=== PATIENT | female | born 1960 | race Caucasian/White ===

== ENCOUNTER → 2018-06-09 07:40 | Outpatient (CLI) | payer OTHER, SELFPAY ==
--- NOTE | 2018-06-09 | DI.MRI.S_ITS ---
PROCEDURE: MR WRIST LT WO CON INDICATIONS: LEFT ELBOW/WRIST PAIN TECHNIQUE: Noncontrast coronal proton density fast spin echo and T2 fast spin echo with fat saturation; coronal 3-D gradient echo, axial T1 spin echo and T2 fast spin echo with fat saturation, sagittal T1 spin echo through the wrist. COMPARISON: None. FINDINGS: Image quality: There is motion artifact and mild inhomogeneous fat saturation. Bones and cartilage: The carpal bones are normally aligned. No bone marrow contusions or fractures. There is a small region of mild edema and cystic change within the proximal ulnar aspect of the lunate compatible with a degenerative cyst or ganglion cysts. No evidence for avascular necrosis. There is thinning of the articular cartilage along the radiocarpal joint with suspected chondral fissuring along the lunate. Carpal ligaments: The scapholunate and lunotriquetral ligaments appear grossly intact with mild intermediate signal suggestive of degeneration or sequelae of ligamentous sprains are. In the absence of intra-articular contrast, the extrinsic carpal ligaments are not well identified. On sagittal images, the pisohamate ligament appears intact. Triangular fibrocartilage complex: The triangular fibrocartilage appears grossly intact with intermediate signal along the foveal and styloid attachments consistent with degenerative change or sequelae of prior sprains. There is mild indistinct edema along the triangular fibrocartilage complex. The adjacent meniscal homolog appears grossly preserved in the absence of intra-articular contrast. The extensor carpi ulnaris tendon demonstrates mild tendinopathy with mild peritendinous edema consistent with peritendinitis but appears intact. Tendons and soft tissues: The median nerve is thickened with T2 hyperintensity in the carpal tunnel. There is slight thickening of the overlying aponeurosis. The remainder of the carpal tunnel structures appear within normal limits. The ulnar nerve appears normal within Guyon's canal. All six extensor tendon compartments demonstrate normal morphology, without pathologic tendon sheath fluid. No soft tissue ganglion cysts. IMPRESSION: 1. Focus of edema and cystic change in the proximal ulnar aspect of lunate compatible with small degenerative subchondral cysts or ganglion cysts. 2. Segmental thickening and T2 hyperintensity of the median nerve in the carpal tunnel with slight thickening of the overlying aponeurosis may be associated with carpal tunnel syndrome. Recommend correlation with clinical symptoms. 3. Mild intermediate signal within the triangular fibrocartilage as well as the scapholunate and lunotriquetral ligaments may be associated with degenerative change or sequelae of prior sprains. 4. Mild segmental tendinopathy and peritendinitis of the extensor carpi ulnaris tendon at the wrist. Dictated by: Saud Mcpherson M.D. on 06/09/2018 at 14:03 Approved by: Saud Mcpherson M.D. on 06/09/2018 at 14:14
--- NOTE | 2018-06-09 | DI.MRI.S_ITS ---
PROCEDURE: MR ELBOW LT W CON INDICATIONS: LEFT WRIST AND ELBOW PAIN TECHNIQUE: Noncontrast coronal proton density fast spin echo and T2 fast spin echo with fat saturation, axial and sagittal T1 spin echo and T2 fast spin echo with fat saturation through the elbow. COMPARISON: None. FINDINGS: Image quality: Excellent. Lateral structures: The lateral ulnar collateral ligament and radial collateral ligament both appear intact. There is tendinosis involving the common extensor tendon origin at its insertion and lateral epicondyles. No evidence of common extensor tendon rupture. Medial structures: The ulnar collateral ligament appears intact. The overlying common flexor tendon appears normal. The ulnar nerve appears normal in size and signal within the cubital tunnel. Anterior structures: The biceps and brachialis tendons both appear intact as they insert onto the proximal radius and ulna, respectively. No bicipitoradial bursal fluid. The median and radial neurovascular bundles appear normal; no focal muscle atrophy to suggest nerve impingement. Posterior structures: The conjoint triceps tendon from the long and lateral heads appears intact. The medial head of the triceps tendon also appears normal, with direct muscle insertion onto the olecranon. No olecranon bursal fluid. Bone and cartilage: No bone marrow contusions or fractures. No osteochondral injuries. IMPRESSION: Finding is suggestive of tendinosis and possible low grade partial-thickness tear involving proximal common extensor tendon origin. No other tendon or ligament abnormality is seen. No marrow signal abnormality. No significant joint effusion. Dictated by: Fermín Noel M.D. on 06/09/2018 at 12:25 Approved by: Fermín Noel M.D. on 06/09/2018 at 12:34
== END ==
DX: M25.532 Pain in left wrist (principal); M25.522 Pain in left elbow; M77.9 Enthesopathy, unspecified
CPT/HCPCS: 73221

== ENCOUNTER 2020-08-16 17:51 | Emergency (ER) | payer OTHER, MEDICAID, SELFPAY ==
[2020-08-16] VITALS (46 sets, daily range): BP systolic 71–173; BP diastolic 44–98; PULSE 78–141; RESP 11–36; O2SAT 88–100
--- NOTE | 2020-08-16 17:56 | DI.RAD.S_ITS ---
PROCEDURE: XR CHEST 1V INDICATIONS: asthma, ? [place] TECHNIQUE: One view of the chest was acquired. COMPARISON: None. FINDINGS: Surgical changes and devices: Endotracheal tube is in the right mainstem bronchus. Lungs and pleura: Opacification of the left hemithorax. No pleural effusions or pneumothorax. Mediastinum: Mediastinal contours appear normal. Heart size is normal. Bones and chest wall: No suspicious bony lesions. Overlying soft tissues appear unremarkable. IMPRESSION: Endotracheal tube in the right mainstem bronchus. Opacification of the left hemithorax. It is uncertain if this is related to the malposition of the endotracheal tube versus diffuse left airspace opacity or large left pleural effusion. Right hemithorax is clear. Results were called to the emergency department at 6:14 p.m. The provider is aware of the malpositioned endotracheal tube and has been pulled back. Dictated by: Morgan Fletcher M.D. on 08/16/2020 at 18:11 Approved by: Morgan Fletcher M.D. on 08/16/2020 at 18:15
[2020-08-16] MEDS: KETAMINE 500 MG/5 ML INJ 105 MG IV (18:03)
--- NOTE | 2020-08-16 18:03 | ED_ITS ---
HPI - SOB/Dyspnea General Chief Complaint: Shortness of Breath/Dyspnea Stated Complaint: Intubated,possible STEMI Time Seen by Provider: 08/16/20 17:55 Source: family and EMS Mode of arrival: EMS Limitations: physical limitation History of Present Illness HPI Narrative: Patient is a 59-year-old female with history of coronary artery disease, asthma and hypothyroid presenting today with difficulty breathing. She was actually feeling okay out riding horses with her granddaughter. They were on their way home when she suddenly felt like she could not breathe rib puller to the side of the road and 911 was called. When EMS arrived she was intubated on scene for difficulty breathing. Related Data Allergies Allergy/AdvReac Type Severity Reaction Status Date / Time No Known Drug Allergies Allergy Verified 08/16/20 18:31 Review of Systems Review of Systems ROS Unobtainable: Unobtainable due to medical condition Patient History Medical History Asthma Coronary artery disease Hypothyroid Exam Initial Vital Signs Initial Vital Signs: Vital Signs Pulse Rate 141 H 08/16/20 17:52 Respiratory Rate 13 08/16/20 17:52 Blood Pressure 173/98 H 08/16/20 17:52 Pulse Oximetry 89 L 08/16/20 17:52 Gen.: Intubated sedated patient HEENT: Head is atraumatic pupils equal and reactive Neck: No JVD Lungs: Decreased breath sounds on left, tight on the right mild wheezing Cardiac: Tachycardic regular Abdomen: Soft nontender Extremities: Peripheral pulses intact no gross bony deformities Neurologic: Intubated GCS 3 Skin: Slightly cyanotic no lacerations Procedures Central Line Placement Right IJ: Time Out Performed: Yes Patient Placed on Monitor/Pulse Ox: Yes MD Prep: mask, gown and gloves Central Line Prep: Chlorhexidine scrub Local Anesthetic: lidocaine 1% Amount of anesthesia used (mL): 5 Ultrasound Used for Placement: Yes Central Line Lumen Inserted: triple Post Procedure: sutured in place (Stat Lock), good blood return, all ports aspirated, flushed, capped and sterile dressing applied Course Orders Ordered: ED Orders 08/16/20 19:05 Arterial Blood Gas Stat 08/16/20 19:20 EKG-12 Lead Stat 08/16/20 19:25 EKG-12 Lead Stat 08/16/20 19:42 XR chest 1V Stat 08/16/20 20:00 Troponin I Stat 08/16/20 21:33 Chest [XR chest 1V] Stat 08/16/20 21:53 Arterial Blood Gas Stat Discontinued Medications Albuterol/Ipratropium (Albuterol/Ipratropium 3 Ml Ampul) 3 ml INH NOW ONE Stop: 08/16/20 17:57 Last Admin: 08/16/20 19:19 Dose: 3 ml Documented by: FRANCISCO J Heparin Sodium (Porcine) (Heparin 5,000 Unit/Ml Vial) 5,000 unit IV NOW ONE Stop: 08/16/20 20:44 Last Admin: 08/16/20 21:49 Dose: 5,000 unit Documented by: HOLLIS Hydromorphone HCl (Hydromorphone 1 Mg Inj) 1 mg IV NOW ONE Stop: 08/16/20 22:51 Last Admin: 08/16/20 22:57 Dose: 1 mg Documented by: HOLLIS Magnesium Sulfate (Magnesium Sulfate) 2 gm in 50 mls @ 25 mls/hr IV NOW ONE Stop: 08/16/20 19:55 Last Infusion: 08/16/20 19:00 Dose: 0 mls/hr Documented by: HOLLIS Cosigned by: ADAN Infusion: 08/16/20 18:17 Dose: 50 mls/hr Documented by: ADAN Cosigned by: ISAIAH Admin: 08/16/20 18:05 Dose: 25 mls/hr Documented by: NENA Cosigned by: ISAIAH Sodium Chloride (Normal Saline 0.9%) 1,000 mls @ 1,000 mls/hr IV BOLUS ONE Stop: 08/16/20 18:55 Last Infusion: 08/16/20 20:39 Dose: 0 mls/hr Documented by: Admin: 08/16/20 18:06 Dose: 1,000 mls/hr Documented by: NENA Ketamine HCl 500 mg/ Sodium (Chloride) 255 mls @ 3 mls/hr IV TITRATE KRIS; Protocol Last Titration: 08/16/20 23:21 Dose: 0 mg/min, 0 mls/hr Documented by: Titration: 08/16/20 22:03 Dose: 0 mg/min, 0 mls/hr Documented by: Admin: 08/16/20 19:01 Dose: 0.1 mg/min, 3.06 mls/hr Documented by: ESTEFANIAPBradley Ceftriaxone Sodium/Dextrose (Rocephin) 2 gm in 50 mls @ 100 mls/hr IV NOW ONE Stop: 08/16/20 19:40 Last Infusion: 08/16/20 20:06 Dose: 0 mls/hr Documented by: Admin: 08/16/20 19:19 Dose: 100 mls/hr Documented by: HOLLIS Azithromycin 500 mg/ Dextrose 250 mls @ 250 mls/hr IV NOW ONE Stop: 08/16/20 19:11 Last Infusion: 08/16/20 22:11 Dose: 0 mls/hr Documented by: Infusion: 08/16/20 19:50 Dose: 250 mls/hr Documented by: Infusion: 08/16/20 19:29 Dose: 0 mls/hr Documented by: Admin: 08/16/20 19:23 Dose: 250 mls/hr Documented by: NENA Sodium Chloride (Normal Saline 0.9%) 1,000 mls @ 1,000 mls/hr IV BOLUS ONE Stop: 08/16/20 21:27 Last Infusion: 08/16/20 21:46 Dose: 0 mls/hr Documented by: Admin: 08/16/20 20:30 Dose: 1,000 mls/hr Documented by: HOLLIS Heparin Sodium/Dextrose (Heparin Drip) 25,000 unit in 500 mls @ 20 mls/hr IV CONT KRIS; Protocol Last Titration: 08/16/20 23:23 Dose: 0 units/hr, 0 mls/hr Documented by: Admin: 08/16/20 21:49 Dose: 1,000 units/hr, 20 mls/hr Documented by: HOLLIS Norepinephrine Bitartrate 4 mg (/ Dextrose) 254 mls @ 30.48 mls/hr IV TITRATE KRIS; Protocol Last Titration: 08/16/20 23:21 Dose: 0 mcg/min, 0 mls/hr Documented by: Admin: 08/16/20 21:38 Dose: 8 mcg/min, 30.48 mls/hr Documented by: HOLLIS Propofol (Propofol) 1,000 mg in 100 mls @ 3.09 mls/hr IV TITRATE KRIS; Protocol Last Titration: 08/16/20 23:20 Dose: 0 mcg/kg/min, 0 mls/hr Documented by: Titration: 08/16/20 22:22 Dose: 10 mcg/kg/min, 6.18 mls/hr Documented by: Admin: 08/16/20 22:00 Dose: 5 mcg/kg/min, 3.09 mls/hr Documented by: HOLLIS Sodium Chloride (Normal Saline 0.9%) 1,000 mls @ 1,000 mls/hr IV BOLUS ONE Stop: 08/16/20 23:24 Last Infusion: 08/16/20 23:22 Dose: 0 mls/hr Documented by: Admin: 08/16/20 22:26 Dose: 1,000 mls/hr Documented by: HOLLIS Ketamine HCl (Ketamine 500 Mg/5 Ml Inj) 105 mg 1 mg/kg (105 mg) IV NOW ONE Stop: 08/16/20 17:58 Last Admin: 08/16/20 18:03 Dose: 105 mg Documented by: NENA Ketamine HCl (Ketamine 500 Mg/5 Ml Inj) 100 mg IV NOW ONE Stop: 08/16/20 20:15 Last Admin: 08/16/20 20:15 Dose: 100 mg Documented by: HOLLIS Ketamine HCl (Ketamine 500 Mg/5 Ml Inj) 200 mg IV NOW ONE Stop: 08/16/20 21:40 Last Admin: 08/16/20 21:41 Dose: 200 mg Documented by: HOLLIS Midazolam HCl (Midazolam 5 Mg/Ml Vial) 2 mg IV NOW ONE Stop: 08/16/20 20:44 Last Admin: 08/16/20 20:45 Dose: 2 mg Documented by: HOLLIS Prednisone (Prednisone 20 Mg Tablet) 60 mg PO NOW ONE Stop: 08/16/20 17:57 Last Admin: 08/16/20 18:06 Dose: Not Given Documented by: NENA Vital Signs Vital signs: Vital Signs - 8 hr 08/16/20 19:30 08/16/20 19:32 08/16/20 19:40 Pulse Rate 101 H 110 H 114 H Respiratory Rate Blood Pressure 112/73 114/75 Pulse Oximetry 92 93 99 08/16/20 19:50 08/16/20 20:00 08/16/20 20:01 Pulse Rate 109 H 112 H 110 H Respiratory Rate 27 H 29 H Blood Pressure 101/67 102/70 Pulse Oximetry 99 98 98 08/16/20 20:10 08/16/20 20:14 08/16/20 20:26 Pulse Rate 103 H 101 H 89 Respiratory Rate 29 H 28 H 28 H Blood Pressure 88/50 L 79/52 L 75/44 L Pulse Oximetry 99 99 99 08/16/20 20:47 08/16/20 20:51 08/16/20 20:55 Pulse Rate 100 H 91 H 87 Respiratory Rate 28 H 28 H 28 H Blood Pressure 112/67 85/53 L 75/49 L Pulse Oximetry 99 98 98 08/16/20 21:00 08/16/20 21:01 08/16/20 21:05 Pulse Rate 84 84 82 Respiratory Rate 28 H 28 H 28 H Blood Pressure 74/45 L 71/49 L Pulse Oximetry 99 99 100 08/16/20 21:10 08/16/20 21:15 08/16/20 21:21 Pulse Rate 84 83 98 H Respiratory Rate 29 H 28 H 28 H Blood Pressure 74/51 L 75/52 L 94/60 Pulse Oximetry 100 100 100 08/16/20 21:25 08/16/20 21:30 08/16/20 21:35 Pulse Rate 87 82 80 Respiratory Rate 28 H 34 H Blood Pressure 94/60 97/64 96/61 Pulse Oximetry 100 99 99 08/16/20 21:42 08/16/20 21:46 08/16/20 21:50 Pulse Rate 80 78 79 Respiratory Rate Blood Pressure 111/75 97/55 L 106/63 Pulse Oximetry 99 100 99 08/16/20 22:00 08/16/20 22:05 08/16/20 22:10 Pulse Rate 101 H 92 H 87 Respiratory Rate 28 H Blood Pressure 106/70 90/59 L 91/58 L Pulse Oximetry 99 98 96 08/16/20 22:15 08/16/20 22:21 08/16/20 22:25 Pulse Rate 84 86 83 Respiratory Rate 28 H 26 H 28 H Blood Pressure 91/57 L 101/67 105/67 Pulse Oximetry 96 99 99 08/16/20 22:30 08/16/20 22:35 08/16/20 22:41 Pulse Rate 82 81 84 Respiratory Rate 28 H 28 H 21 Blood Pressure 92/59 L 100/62 112/75 Pulse Oximetry 98 98 96 08/16/20 22:54 08/16/20 23:00 Pulse Rate 104 H 89 Respiratory Rate 29 H Blood Pressure 135/82 Pulse Oximetry 96 97 MDM - SOB/Dyspnea Lab Data Attestation: I reviewed the patient's lab results. Result diagrams: 08/16/20 17:57 08/16/20 17:57 Labs: Lab Results 08/16/20 08/16/20 08/16/20 Range/Units 17:03 17:57 17:57 WBC 18.7 H (4.5-11.0) X10^3/uL RBC 4.95 (4.0-5.2) X10^6/uL Hgb 15.1 (12.0-16.0) g/dL Hct 47.1 H (36-46) % MCV 95.0 (80-100) fL MCH 30.4 (26-34) PG MCHC 32.0 (30-36) % RDW 13.4 (11.6-14.8) % Plt Count 370 (150-400) X10^3/uL Neut % (Auto) Not Reportable Lymph % (Auto) Not Reportable [place] % (Auto) Not Reportable Eos % (Auto) Not Reportable Baso % (Auto) Not Reportable Lymph # (Auto) Not Reportable [place] # (Auto) Not Reportable Baso # (Auto) Not Reportable Total Counted 100 Seg Neutrophils % 34.0 L (38-70) % Band Neutrophils % 4.0 (3-7) % Lymphocytes % (Manual) 40.0 (25-45) % Atypical Lymphs % 13.0 H ( - 0) % Monocytes % (Manual) 5.0 (2-11) % Eosinophils % (Manual) 2.0 (2-4) % Basophils % (Manual) 2.0 H (0-1) % Neutrophils # (Manual) 7106 H (1799-0360) /uL RBC Morphology Normal morphology PT (10.1-12.7) SECONDS INR (0.9-1.3) APTT (26.4-36.2) SECONDS D-Dimer 1560 H (<230) ng/mL ABG pH (7.35-7.45) ABG pCO2 (35-45) mmHg ABG pO2 (80-100) mmHg ABG HCO3 (22-26) mmol/L ABG Total CO2 (21-31) mmol/L ABG O2 Saturation (95-100) % ABG Base Excess (-2-2) mmol/L FiO2 Sodium (137-145) mmol/L Potassium (3.4-5.1) mmol/L Chloride (98-107) mmol/L Carbon Dioxide (22-32) mmol/L BUN (7-17) mg/dL Creatinine (0.52-1.04) mg/dL Estimated GFR (>60) mL/min BUN/Creatinine Ratio (6-22) Glucose (70-100) mg/dL Lactate (0.7-2.1) mmol/L Calcium (8.4-10.2) mg/dL Total Bilirubin (0.2-1.3) mg/dL AST (14-36) IU/L ALT (<35) IU/L Alkaline Phosphatase (38-126) U/L Total Creatine Kinase (30-135) U/L CK-MB (CK-2) (<2.37) ng/mL CK-MB (CK-2) Rel Index (1.5-5.0) % Troponin I (0.01-0.034) ng/mL NT-Pro-B Natriuret Pep 538 H (<125) pg/mL Total Protein (6.3-8.2) g/dL Albumin (3.5-5.0) g/dL Globulin (1.7-4.1) g/dL Albumin/Globulin Ratio (1.0-2.8) Procalcitonin (<0.5) ng/mL Urine Color Urine Appearance Urine pH (4.5-8.0) Ur Specific [place] (1.000-1.035) Urine Protein (Negative) Urine Glucose (UA) (Negative) g/dL Urine Ketones (NEGATIVE) Urine Occult Blood (Negative) Urine Nitrate (Negative) Urine Bilirubin (NEGATIVE) Urine Urobilinogen (0.2) E.U./dL Ur Leukocyte Esterase (NEGATIVE) Urine RBC (0-5/HPF) Urine WBC (0-5/HPF) Urine Bacteria (None) Ur Culture Indicated? SARS-CoV-2 (PCR) (Negative) 08/16/20 08/16/20 08/16/20 Range/Units 17:57 17:57 17:57 WBC (4.5-11.0) X10^3/uL RBC (4.0-5.2) X10^6/uL Hgb (12.0-16.0) g/dL Hct (36-46) % MCV (80-100) fL MCH (26-34) PG MCHC (30-36) % RDW (11.6-14.8) % Plt Count (150-400) X10^3/uL Neut % (Auto) Lymph % (Auto) [place] % (Auto) Eos % (Auto) Baso % (Auto) Lymph # (Auto) [place] # (Auto) Baso # (Auto) Total Counted Seg Neutrophils % (38-70) % Band Neutrophils % (3-7) % Lymphocytes % (Manual) (25-45) % Atypical Lymphs % ( - 0) % Monocytes % (Manual) (2-11) % Eosinophils % (Manual) (2-4) % Basophils % (Manual) (0-1) % Neutrophils # (Manual) (6125-8313) /uL RBC Morphology PT (10.1-12.7) SECONDS INR (0.9-1.3) APTT (26.4-36.2) SECONDS D-Dimer (<230) ng/mL ABG pH (7.35-7.45) ABG pCO2 (35-45) mmHg ABG pO2 (80-100) mmHg ABG HCO3 (22-26) mmol/L ABG Total CO2 (21-31) mmol/L ABG O2 Saturation (95-100) % ABG Base Excess (-2-2) mmol/L FiO2 Sodium 139 (137-145) mmol/L Potassium 4.2 (3.4-5.1) mmol/L Chloride 107 (98-107) mmol/L Carbon Dioxide 19 L (22-32) mmol/L BUN 14 (7-17) mg/dL Creatinine 1.08 H (0.52-1.04) mg/dL Estimated GFR 52.1 L (>60) mL/min BUN/Creatinine Ratio 13.0 (6-22) Glucose 258 H (70-100) mg/dL Lactate (0.7-2.1) mmol/L Calcium 8.8 (8.4-10.2) mg/dL Total Bilirubin 0.2 (0.2-1.3) mg/dL AST 64 H (14-36) IU/L ALT 40 H (<35) IU/L Alkaline Phosphatase 74 (38-126) U/L Total Creatine Kinase 308 H (30-135) U/L CK-MB (CK-2) 4.17 H (<2.37) ng/mL CK-MB (CK-2) Rel Index 1.4 L (1.5-5.0) % Troponin I 0.089 H 0.077 H (0.01-0.034) ng/mL NT-Pro-B Natriuret Pep (<125) pg/mL Total Protein 6.9 (6.3-8.2) g/dL Albumin 4.1 (3.5-5.0) g/dL Globulin 2.8 (1.7-4.1) g/dL Albumin/Globulin Ratio 1.5 (1.0-2.8) Procalcitonin 0.16 (<0.5) ng/mL Urine Color Urine Appearance Urine pH (4.5-8.0) Ur Specific [place] (1.000-1.035) Urine Protein (Negative) Urine Glucose (UA) (Negative) g/dL Urine Ketones (NEGATIVE) Urine Occult Blood (Negative) Urine Nitrate (Negative) Urine Bilirubin (NEGATIVE) Urine Urobilinogen (0.2) E.U./dL Ur Leukocyte Esterase (NEGATIVE) Urine RBC (0-5/HPF) Urine WBC (0-5/HPF) Urine Bacteria (None) Ur Culture Indicated? SARS-CoV-2 (PCR) (Negative) 08/16/20 08/16/20 08/16/20 Range/Units 17:57 17:57 17:57 WBC (4.5-11.0) X10^3/uL RBC (4.0-5.2) X10^6/uL Hgb (12.0-16.0) g/dL Hct (36-46) % MCV (80-100) fL MCH (26-34) PG MCHC (30-36) % RDW (11.6-14.8) % Plt Count (150-400) X10^3/uL Neut % (Auto) Lymph % (Auto) [place] % (Auto) Eos % (Auto) Baso % (Auto) Lymph # (Auto) [place] # (Auto) Baso # (Auto) Total Counted Seg Neutrophils % (38-70) % Band Neutrophils % (3-7) % Lymphocytes % (Manual) (25-45) % Atypical Lymphs % ( - 0) % Monocytes % (Manual) (2-11) % Eosinophils % (Manual) (2-4) % Basophils % (Manual) (0-1) % Neutrophils # (Manual) (4053-3889) /uL RBC Morphology PT 11.6 (10.1-12.7) SECONDS INR 1.0 (0.9-1.3) APTT 32 (26.4-36.2) SECONDS D-Dimer (<230) ng/mL ABG pH (7.35-7.45) ABG pCO2 (35-45) mmHg ABG pO2 (80-100) mmHg ABG HCO3 (22-26) mmol/L ABG Total CO2 (21-31) mmol/L ABG O2 Saturation (95-100) % ABG Base Excess (-2-2) mmol/L FiO2 Sodium (137-145) mmol/L Potassium (3.4-5.1) mmol/L Chloride (98-107) mmol/L Carbon Dioxide (22-32) mmol/L BUN (7-17) mg/dL Creatinine (0.52-1.04) mg/dL Estimated GFR (>60) mL/min BUN/Creatinine Ratio (6-22) Glucose (70-100) mg/dL Lactate 6.5 H* (0.7-2.1) mmol/L Calcium (8.4-10.2) mg/dL Total Bilirubin (0.2-1.3) mg/dL AST (14-36) IU/L ALT (<35) IU/L Alkaline Phosphatase (38-126) U/L Total Creatine Kinase (30-135) U/L CK-MB (CK-2) (<2.37) ng/mL CK-MB (CK-2) Rel Index (1.5-5.0) % Troponin I (0.01-0.034) ng/mL NT-Pro-B Natriuret Pep (<125) pg/mL Total Protein (6.3-8.2) g/dL Albumin (3.5-5.0) g/dL Globulin (1.7-4.1) g/dL Albumin/Globulin Ratio (1.0-2.8) Procalcitonin (<0.5) ng/mL Urine Color Urine Appearance Urine pH (4.5-8.0) Ur Specific [place] (1.000-1.035) Urine Protein (Negative) Urine Glucose (UA) (Negative) g/dL Urine Ketones (NEGATIVE) Urine Occult Blood (Negative) Urine Nitrate (Negative) Urine Bilirubin (NEGATIVE) Urine Urobilinogen (0.2) E.U./dL Ur Leukocyte Esterase (NEGATIVE) Urine RBC (0-5/HPF) Urine WBC (0-5/HPF) Urine Bacteria (None) Ur Culture Indicated? SARS-CoV-2 (PCR) Negative (Negative) 08/16/20 08/16/20 08/16/20 Range/Units 18:20 19:05 20:00 WBC (4.5-11.0) X10^3/uL RBC (4.0-5.2) X10^6/uL Hgb (12.0-16.0) g/dL Hct (36-46) % MCV (80-100) fL MCH (26-34) PG MCHC (30-36) % RDW (11.6-14.8) % Plt Count (150-400) X10^3/uL Neut % (Auto) Lymph % (Auto) [place] % (Auto) Eos % (Auto) Baso % (Auto) Lymph # (Auto) [place] # (Auto) Baso # (Auto) Total Counted Seg Neutrophils % (38-70) % Band Neutrophils % (3-7) % Lymphocytes % (Manual) (25-45) % Atypical Lymphs % ( - 0) % Monocytes % (Manual) (2-11) % Eosinophils % (Manual) (2-4) % Basophils % (Manual) (0-1) % Neutrophils # (Manual) (1344-5769) /uL RBC Morphology PT (10.1-12.7) SECONDS INR (0.9-1.3) APTT (26.4-36.2) SECONDS D-Dimer (<230) ng/mL ABG pH 7.10 L* (7.35-7.45) ABG pCO2 74.8 H* (35-45) mmHg ABG pO2 77 L (80-100) mmHg ABG HCO3 23 (22-26) mmol/L ABG Total CO2 26 (21-31) mmol/L ABG O2 Saturation 89 L (95-100) % ABG Base Excess -6.0 L (-2-2) mmol/L FiO2 1.00 Sodium (137-145) mmol/L Potassium (3.4-5.1) mmol/L Chloride (98-107) mmol/L Carbon Dioxide (22-32) mmol/L BUN (7-17) mg/dL Creatinine (0.52-1.04) mg/dL Estimated GFR (>60) mL/min BUN/Creatinine Ratio (6-22) Glucose (70-100) mg/dL Lactate (0.7-2.1) mmol/L Calcium (8.4-10.2) mg/dL Total Bilirubin (0.2-1.3) mg/dL AST (14-36) IU/L ALT (<35) IU/L Alkaline Phosphatase (38-126) U/L Total Creatine Kinase (30-135) U/L CK-MB (CK-2) (<2.37) ng/mL CK-MB (CK-2) Rel Index (1.5-5.0) % Troponin I 0.452 H* (0.01-0.034) ng/mL NT-Pro-B Natriuret Pep (<125) pg/mL Total Protein (6.3-8.2) g/dL Albumin (3.5-5.0) g/dL Globulin (1.7-4.1) g/dL Albumin/Globulin Ratio (1.0-2.8) Procalcitonin (<0.5) ng/mL Urine Color Yellow Urine Appearance Clear Urine pH 5.5 (4.5-8.0) Ur Specific [place] 1.020 (1.000-1.035) Urine Protein 1+ H (Negative) Urine Glucose (UA) Negative (Negative) g/dL Urine Ketones Negative (NEGATIVE) Urine Occult Blood 2+ H (Negative) Urine Nitrate Negative (Negative) Urine Bilirubin Negative (NEGATIVE) Urine Urobilinogen 0.2 (0.2) E.U./dL Ur Leukocyte Esterase Negative (NEGATIVE) Urine RBC 10-30/hpf H (0-5/HPF) Urine WBC None seen (0-5/HPF) Urine Bacteria None seen (None) Ur Culture Indicated? Cult not indicated SARS-CoV-2 (PCR) (Negative) 08/16/20 08/16/20 Range/Units 20:24 21:53 WBC (4.5-11.0) X10^3/uL RBC (4.0-5.2) X10^6/uL Hgb (12.0-16.0) g/dL Hct (36-46) % MCV (80-100) fL MCH (26-34) PG MCHC (30-36) % RDW (11.6-14.8) % Plt Count (150-400) X10^3/uL Neut % (Auto) Lymph % (Auto) [place] % (Auto) Eos % (Auto) Baso % (Auto) Lymph # (Auto) [place] # (Auto) Baso # (Auto) Total Counted Seg Neutrophils % (38-70) % Band Neutrophils % (3-7) % Lymphocytes % (Manual) (25-45) % Atypical Lymphs % ( - 0) % Monocytes % (Manual) (2-11) % Eosinophils % (Manual) (2-4) % Basophils % (Manual) (0-1) % Neutrophils # (Manual) (1192-9674) /uL RBC Morphology PT (10.1-12.7) SECONDS INR (0.9-1.3) APTT (26.4-36.2) SECONDS D-Dimer (<230) ng/mL ABG pH 7.15 L* (7.35-7.45) ABG pCO2 63.0 H* (35-45) mmHg ABG pO2 469 H* (80-100) mmHg ABG HCO3 22 (22-26) mmol/L ABG Total CO2 24 (21-31) mmol/L ABG O2 Saturation 100 (95-100) % ABG Base Excess -7.0 L (-2-2) mmol/L FiO2 100 Sodium (137-145) mmol/L Potassium (3.4-5.1) mmol/L Chloride (98-107) mmol/L Carbon Dioxide (22-32) mmol/L BUN (7-17) mg/dL Creatinine (0.52-1.04) mg/dL Estimated GFR (>60) mL/min BUN/Creatinine Ratio (6-22) Glucose (70-100) mg/dL Lactate 1.9 (0.7-2.1) mmol/L Calcium (8.4-10.2) mg/dL Total Bilirubin (0.2-1.3) mg/dL AST (14-36) IU/L ALT (<35) IU/L Alkaline Phosphatase (38-126) U/L Total Creatine Kinase (30-135) U/L CK-MB (CK-2) (<2.37) ng/mL CK-MB (CK-2) Rel Index (1.5-5.0) % Troponin I (0.01-0.034) ng/mL NT-Pro-B Natriuret Pep (<125) pg/mL Total Protein (6.3-8.2) g/dL Albumin (3.5-5.0) g/dL Globulin (1.7-4.1) g/dL Albumin/Globulin Ratio (1.0-2.8) Procalcitonin (<0.5) ng/mL Urine Color Urine Appearance Urine pH (4.5-8.0) Ur Specific [place] (1.000-1.035) Urine Protein (Negative) Urine Glucose (UA) (Negative) g/dL Urine Ketones (NEGATIVE) Urine Occult Blood (Negative) Urine Nitrate (Negative) Urine Bilirubin (NEGATIVE) Urine Urobilinogen (0.2) E.U./dL Ur Leukocyte Esterase (NEGATIVE) Urine RBC (0-5/HPF) Urine WBC (0-5/HPF) Urine Bacteria (None) Ur Culture Indicated? SARS-CoV-2 (PCR) (Negative) Imaging Data CT scan - chest: Radiologist's Impression: PROCEDURE: CT ANGIO CHEST PE PROTOCOL INDICATIONS: hypoxia TECHNIQUE: After the administration of intravenous contrast, 2 mm thick sections acquired f rom the pulmonary apices to the posterior costophrenic angles. 3-dimensional maximum intensity projection (MIP) coronal and sagittal reformats were then acquired through the thorax. For radiation dose reduction, the following was used: automated exposure control, adjustment of mA and/or kV according to patient size. COMPARISON: [facility], CR, XR CHEST 1V, 08/16/2020, 17:56. FINDINGS: Image quality: Excellent. Pulmonary arteries: Pulmonary arteries are normal in size, and demonstrate no intraluminal filling defects to suggest central pulmonary embolism. Lungs and pleura: Endotracheal tube in the right mainstem bronchus. This can be pulled back approximately 5 cm. There are secretions in the left mainstem bronchus. There is improvement of the left hemithorax opacification compared to CXR. Diffuse interlobular septal thickening. There is diffuse ground-glass opacity with a central predominance. Several areas of subpleural thickening and consolidative opacity. Small peripheral nodular opacities most pronounced in the right upper lobe, (6/131). No pleural effusions or pneumothorax. Central and peripheral airways are patent. Mediastinum: Heart size is normal, without pericardial effusion. No mediastinal or hilar adenopathy. Thoracic aorta is normal in caliber and enhancement. Esophagus is normal in caliber, small hiatal hernia. Bones and chest wall: No suspicious bony lesions. Ribs and thoracic spine appear intact throughout. Thyroid gland is unremarkable. No axillary or supraclavicular adenopathy. Abdomen: Enteric tube in the stomach. Visualized upper abdominal solid organs appear normal in the early arterial phase of enhancement. IMPRESSION: 1. No pulmonary embolism. 2. Endotracheal tube in the right mainstem bronchus. This should be pulled back approximately 5 cm for more optimal positioning. There are secretions in the left mainstem bronchus. There is improved opacification of the left hemithorax. 3. Interlobular septal thickening and ground-glass opacity. Suspect pulmonary edema. 4. Peripheral nodularity most pronounced in the right upper lobe. This could represent pulmonary nodules. -Recommend follow-up CT of the chest in approximately 6 months. Comment: Findings were discussed with Cary Jarvis at the time of dictation. Dictated by: Morgan Fletcher M.D. on 08/16/2020 at 19:17 Approved by: Morgan Fletcher M.D. on 08/16/2020 at 19:31 Chest x-ray: Radiologist's Impression: PROCEDURE: CT ANGIO CHEST PE PROTOCOL INDICATIONS: hypoxia TECHNIQUE: After the administration of intravenous contrast, 2 mm thick sections acquired from the pulmonary apices to the posterior costophrenic angles. 3-dimensional maximum intensity projection (MIP) coronal and sagittal reformats were then acquired through the thorax. For radiation dose reduction, the following was used: automated exposure control, adjustment of mA and/or kV according to patient size. COMPARISON: [facility], CR, XR CHEST 1V, 08/16/2020, 17:56. FINDINGS: Image quality: Excellent. Pulmonary arteries: Pulmonary arteries are normal in size, and demonstrate no intraluminal filling defects to suggest central pulmonary embolism. Lungs and pleura: Endotracheal tube in the right mainstem bronchus. This can be pulled back approximately 5 cm. There are secretions in the left mainstem bronchus. There is improvement of the left hemithorax opacification compared to CXR. Diffuse interlobular septal thickening. There is diffuse ground-glass opacity with a central predominance. Several areas of subpleural thickening and consolidative opacity. Small peripheral nodular opacities most pronounced in the right upper lobe, (6/ 131). No pleural effusions or pneumothorax. Central and peripheral airways are patent. Mediastinum: Heart size is normal, without pericardial effusion. No mediastinal or hilar adenopathy. Thoracic aorta is normal in caliber and enhancement. Esophagus is normal in caliber, small hiatal hernia. Bones and chest wall: No suspicious bony lesions. Ribs and thoracic spine appear intact throughout. Thyroid gland is unremarkable. No axillary or supraclavicular adenopathy. Abdomen: Enteric tube in the stomach. Visualized upper abdominal solid organs appear normal in the early arterial phase of enhancement. IMPRESSION: 1. No pulmonary embolism. 2. Endotracheal tube in the right mainstem bronchus. This should be pulled back approximately 5 cm for more optimal positioning. There are secretions in the left mainstem bronchus. There is improved opacification of the left hemithorax. 3. Interlobular septal thickening and ground-glass opacity. Suspect pulmonary edema. 4. Peripheral nodularity most pronounced in the right upper lobe. This could represent pulmonary nodules. -Recommend follow-up CT of the chest in approximately 6 months. Comment: Findings were discussed with Cary Jarvis at the time of dictation. Dictated by: Morgan Fletcher M.D. on 08/16/2020 at 19:17 Approved by: Morgan Fletcher M.D. on 08/16/2020 at 19:31 CX 2: Radiologist's Impression: PROCEDURE: XR CHEST 1V INDICATIONS: ET tube placement TECHNIQUE: One view of the chest was acquired. COMPARISON: [facility], CT, CT ANGIO CHEST PE PROTOCOL, 08/16/2020, 18:46. [facility], CR, XR CHEST 1V, 08/16/2020, 17:56. FINDINGS: Surgical changes and devices: Endotracheal tube in the lower trachea jackie roximately 2.9 cm above the ken, this is been pulled back. Enteric tube coursing into the stomach. Lungs and pleura: Mild airspace opacity in the left lung. Again seen is substantial improvement in the left hemithorax opacification. No pleural effusions or pneumothorax. Mediastinum: Mediastinal contours appear normal. Heart size is within normal limits. Bones and chest wall: No suspicious bony lesions. Overlying soft tissues appear unremarkable. IMPRESSION: Endotracheal tube has been pulled back and now terminates in the lower trachea. Mild left lung airspace opacity. Dictated by: Morgan Fletcher M.D. on 08/16/2020 at 21:17 CX 3: Radiologist's Impression: PROCEDURE: XR CHEST 1V INDICATIONS: for central line placement TECHNIQUE: One view of the chest was acquired. COMPARISON: [facility], CT, CT ANGIO CHEST PE PROTOCOL, 08/16/2020, 18:46. [facility], CR, XR CHEST 1V, 08/16/2020, 19:45. [facility], CR, XR CHEST 1V, 08/16/2020, 17:56. FINDINGS: Surgical changes and devices: Endotracheal tube in the midtrachea. Enteric tube coursing into the stomach. Right IJ central venous line with the tip projecting over the middle 3rd of the SVC. Lungs and pleura: Mild airspace opacity in the left lung is decreased. Suspect pulmonary vasculature engorgement. No pleural effusions or pneumothorax demonstrated. Mediastinum: Mediastinal contours appear normal. Heart size is normal. Bones and chest wall: No suspicious bony lesions. Overlying soft tissues appear unremarkable. IMPRESSION: Right IJ central venous line with the tip projecting over the middle 3rd of the SVC. Mild airspace opacity in the left lung. Dictated by: Morgan Fletcher M.D. on 08/16/2020 at 22:22 ECG Data Attestation: I personally reviewed and interpreted this ECG as follows: Prior ECG tracings: not available for review Interpretation: EKG #1 normal sinus rhythm rate own 40 wide complex P T-wave choose 3 before no prior EKGs EKG 2. Sinus rhythm no ST changes rate 111 improved from previous EKG MDM Narrative Medical decision making narrative: The patient initially found to be right mainstem intubated. ET tube was pulled back but it did not seem the pullback are. She has had episodes of hypoxia. CT returned with mucus plugging and persistent right stemmed intubation. ET tube was pulled back chest x-ray confirmed left lung reinflated. Initial lactic acid of 6.5 and leukocytosis of 18. She is empirically started on antibiotics for possible infection Rocephin and azithromycin for possible pneumonia. Repeat lactic acid improved to 1.9. Initial troponin indeterminate at 0.0 8, repeat troponin came back in the positive range of 0.45. She has no EKG changes and no priors to compare. She was initially placed on ketamine drip for possible asthma exacerbation and given continuous neb. She continue to wake up and fight despite ketamine drip she was given pushes of Versed. Blood pressure started to decrease into systolic of 70s. She was given IV boluses without significant improvement. Central line was placed started. Possible cardiogenic shock versus septic shock. I have spoken with the son, and patient's sister who is a retired nurse. Jamal [phone]. Patient is a full code. 2100 Dr. Tripathi, hospitalist at [facility] accepts patient for transfer Critical Care Time Critical Care Time Critical Care Time: Yes Total Critical Care Time: 120 Attestation: The high probability of a clinically significant, sudden or life threatening deterioration of the [cardiovascular] system(s) required my full and direct attention, intervention and personal management. The aggregate critical care time was 120 minutes. This time is in addition to time spent performing reported procedures but includes the following: [x] Data Review and interpretation [x] Patient assessment and monitoring of vital signs [x] Documentation [x] Medication orders and management Discharge Plan Departure Patient Disposition: [facility] Clinical Impression: Cardiogenic shock, Septic shock Respiratory failure Qualifiers: Chronicity: acute Respiratory failure complication: hypoxia Qualified Code(s): J96.01 - Acute respiratory failure with hypoxia
[2020-08-16] MEDS: MAGNESIUM SULFATE 2 GM/50 ML PIGGYBACK IV (18:05)
[2020-08-16] MEDS: methylPREDNISolone 125 MG/2 ML VIAL (18:06)
[2020-08-16] MEDS: SODIUM CHLORIDE 0.9% 1,000 ML 1000 ML IV ×3 (18:06→22:26)
--- NOTE | 2020-08-16 18:07 | DI.CT.S_ITS ---
PROCEDURE: CT ANGIO CHEST PE PROTOCOL INDICATIONS: hypoxia TECHNIQUE: After the administration of intravenous contrast, 2 mm thick sections acquired from the pulmonary apices to the posterior costophrenic angles. 3-dimensional maximum intensity projection (MIP) coronal and sagittal reformats were then acquired through the thorax. For radiation dose reduction, the following was used: automated exposure control, adjustment of mA and/or kV according to patient size. COMPARISON: [facility], CR, XR CHEST 1V, 08/16/2020, 17:56. FINDINGS: Image quality: Excellent. Pulmonary arteries: Pulmonary arteries are normal in size, and demonstrate no intraluminal filling defects to suggest central pulmonary embolism. Lungs and pleura: Endotracheal tube in the right mainstem bronchus. This can be pulled back approximately 5 cm. There are secretions in the left mainstem bronchus. There is improvement of the left hemithorax opacification compared to CXR. Diffuse interlobular septal thickening. There is diffuse ground-glass opacity with a central predominance. Several areas of subpleural thickening and consolidative opacity. Small peripheral nodular opacities most pronounced in the right upper lobe, (6/131). No pleural effusions or pneumothorax. Central and peripheral airways are patent. Mediastinum: Heart size is normal, without pericardial effusion. No mediastinal or hilar adenopathy. Thoracic aorta is normal in caliber and enhancement. Esophagus is normal in caliber, small hiatal hernia. Bones and chest wall: No suspicious bony lesions. Ribs and thoracic spine appear intact throughout. Thyroid gland is unremarkable. No axillary or supraclavicular adenopathy. Abdomen: Enteric tube in the stomach. Visualized upper abdominal solid organs appear normal in the early arterial phase of enhancement. IMPRESSION: 1. No pulmonary embolism. 2. Endotracheal tube in the right mainstem bronchus. This should be pulled back approximately 5 cm for more optimal positioning. There are secretions in the left mainstem bronchus. There is improved opacification of the left hemithorax. 3. Interlobular septal thickening and ground-glass opacity. Suspect pulmonary edema. 4. Peripheral nodularity most pronounced in the right upper lobe. This could represent pulmonary nodules. -Recommend follow-up CT of the chest in approximately 6 months. Comment: Findings were discussed with Cary Jarvis at the time of dictation. Dictated by: Morgan Fletcher M.D. on 08/16/2020 at 19:17 Approved by: Morgan Fletcher M.D. on 08/16/2020 at 19:31
[2020-08-16 18:15] LABS: Hematocrit 47.1 % (36-46); Hemoglobin 15.1 g/dL (12.0-16.0); Mean Corpuscular Hemoglobin 30.4 PG (26-34); Platelet Count 370 X10^3/uL (150-400); Red Blood Cell Count 4.95 X10^6/uL (4.0-5.2); Red Cell Distribution Width 13.4 % (11.6-14.8); White Blood Cell Count 18.7 X10^3/uL (4.5-11.0)
[2020-08-16 18:16] LABS: Add Manual Diff / Slide Review YES
[2020-08-16 18:23] LABS: Alanine Aminotransferase 40 IU/L (<35); Albumin 4.1 g/dL (3.5-5.0); Albumin Globulin Ratio 1.5 (1.0-2.8); Alkaline Phosphatase 74 U/L (38-126); Aspartate Aminotransferase 64 IU/L (14-36); Bilirubin Total 0.2 mg/dL (0.2-1.3); Blood Urea Nitrogen 14 mg/dL (7-17); Calcium 8.8 mg/dL (8.4-10.2); Carbon Dioxide 19 mmol/L (22-32); Chloride 107 mmol/L (98-107); Estimated Glomerular Filt Rate 52.1 mL/min (>60); Globulin 2.8 g/dL (1.7-4.1); Glucose 258 mg/dL (70-100); HEMOLYSIS < 15 (0-50); Potassium 4.2 mmol/L (3.4-5.1); Sodium 139 mmol/L (137-145); Total Protein 6.9 g/dL (6.3-8.2)
[2020-08-16 18:31] LABS: D Dimer 1560 ng/mL (<230)
[2020-08-16 18:35] LABS: Troponin I 0.089 ng/mL (0.01-0.034)
[2020-08-16 18:38] LABS: Creatine Kinase 308 U/L (30-135)
[2020-08-16 18:42] LABS: Lactate (Lactic Acid) 6.5 mmol/L (0.7-2.1)
[2020-08-16 18:44] LABS: COVID19 -Nasal RAPID Negative (Negative)
[2020-08-16 18:50] LABS: Bacteria Urine None Seen; WBC Urine None Seen (0-5/HPF)
[2020-08-16 18:52] LABS: Troponin I 0.077 ng/mL (0.01-0.034)
[2020-08-16 18:54] LABS: CKMB % Relative Index 1.4 % (1.5-5.0); Creatine Kinase MB 4.17 ng/mL (<2.37); Neutrophils Absolute Manual 7106 /uL (3000-5900); RBC Morphology Normal Morphology; Total Cells Counted 100
[2020-08-16 18:56] LABS: Procalcitonin 0.16 ng/mL (<0.5)
[2020-08-16 18:59] LABS: Appearance Urine UA CLEAR; Bilirubin Urine UA NEGATIVE (NEGATIVE); Color Urine UA YELLOW; Glucose Urine UA NEGATIVE (Negative); Ketones Urine UA NEGATIVE (NEGATIVE); Leukocyte Esterase Urine UA NEGATIVE (NEGATIVE); Nitrite Urine UA NEGATIVE (Negative); Occult Blood Urine UA 2+ (Negative); Protein Urine UA 1+ (Negative); Urobilinogen Urine UA 0.2 E.U./dL (0.2)
[2020-08-16 19:01] LABS: pH Urine UA 5.5 (4.5-8.0)
[2020-08-16] MEDS: KETAMINE IV (19:01)
[2020-08-16] MEDS: SODIUM CHLORIDE 0.9% IV (19:01)
[2020-08-16 19:08] LABS: Culture Indicated Urine Cult Not Indicated; RBC Urine 10-30/HPF (0-5/HPF)
[2020-08-16] MEDS: CEFTRIAXONE 2 GM/50 ML FROZ.PIGGY IV (19:19)
[2020-08-16] MEDS: ALBUTEROL/IPRATROPIUM 3 ML AMPUL INH (19:19)
[2020-08-16] MEDS: AZITHROMYCIN 500 MG in DEXTROSE 5% IN WATER 250 ML IV (19:23)
--- NOTE | 2020-08-16 19:42 | DI.RAD.S_ITS ---
PROCEDURE: XR CHEST 1V INDICATIONS: ET tube placement TECHNIQUE: One view of the chest was acquired. COMPARISON: [facility], CT, CT ANGIO CHEST PE PROTOCOL, 08/16/2020, 18:46. [facility], CR, XR CHEST 1V, 08/16/2020, 17:56. FINDINGS: Surgical changes and devices: Endotracheal tube in the lower trachea approximately 2.9 cm above the ken, this is been pulled back. Enteric tube coursing into the stomach. Lungs and pleura: Mild airspace opacity in the left lung. Again seen is substantial improvement in the left hemithorax opacification. No pleural effusions or pneumothorax. Mediastinum: Mediastinal contours appear normal. Heart size is within normal limits. Bones and chest wall: No suspicious bony lesions. Overlying soft tissues appear unremarkable. IMPRESSION: Endotracheal tube has been pulled back and now terminates in the lower trachea. Mild left lung airspace opacity. Dictated by: Morgan Fletcher M.D. on 08/16/2020 at 21:17 Approved by: Morgan Fletcher M.D. on 08/16/2020 at 21:19
[2020-08-16 19:46] LABS: NT-proBNP (BNP-Adult 18+) 538 pg/mL (<125)
[2020-08-16 20:10] LABS: HCO3 ABG 23 mmol/L (22-26); PCO2 ABG 74.8 mmHg (35-45); PO2 ABG 77 mmHg (80-100)
[2020-08-16 20:11] LABS: Oxygen Saturation ABG 89 % (95-100); TCO2 ABG 26 mmol/L (21-31)
[2020-08-16 20:12] LABS: Reflexed Lactate in 2 Hours Y
[2020-08-16] MEDS: KETAMINE 500 MG/5 ML INJ 100 MG IV (20:15)
--- NOTE | 2020-08-16 20:32 | PC.NURSE ---
Pt bp dropped, provider aware. Pt fighting tube. Received order for Ketamine bolus and to bolus fluids.
[2020-08-16 20:40] LABS: Lactate 2HR (Lactic Acid Rflx) 1.9 mmol/L (0.7-2.1)
[2020-08-16] MEDS: MIDAZOLAM 5 MG/ML VIAL 2 MG IV (20:45)
[2020-08-16 21:09] LABS: Troponin I 0.452 ng/mL (0.01-0.034)
[2020-08-16 21:15] LABS: Prothrombin Time 11.6 SECONDS (10.1-12.7)
[2020-08-16 21:18] LABS: PTT Partial Thromboplastin Tim 32 SECONDS (26.4-36.2)
--- NOTE | 2020-08-16 21:33 | DI.RAD.S_ITS ---
PROCEDURE: XR CHEST 1V INDICATIONS: for central line placement TECHNIQUE: One view of the chest was acquired. COMPARISON: [facility], CT, CT ANGIO CHEST PE PROTOCOL, 08/16/2020, 18:46. [facility], CR, XR CHEST 1V, 08/16/2020, 19:45. [facility], CR, XR CHEST 1V, 08/16/2020, 17:56. FINDINGS: Surgical changes and devices: Endotracheal tube in the midtrachea. Enteric tube coursing into the stomach. Right IJ central venous line with the tip projecting over the middle 3rd of the SVC. Lungs and pleura: Mild airspace opacity in the left lung is decreased. Suspect pulmonary vasculature engorgement. No pleural effusions or pneumothorax demonstrated. Mediastinum: Mediastinal contours appear normal. Heart size is normal. Bones and chest wall: No suspicious bony lesions. Overlying soft tissues appear unremarkable. IMPRESSION: Right IJ central venous line with the tip projecting over the middle 3rd of the SVC. Mild airspace opacity in the left lung. Dictated by: Morgan Fletcher M.D. on 08/16/2020 at 22:22 Approved by: Morgan Fletcher M.D. on 08/16/2020 at 22:24
[2020-08-16] MEDS: NOREPINEPHRINE 4 MG in DEXTROSE 5% IN WATER 250 ML 30.48 ML IV (21:38)
[2020-08-16] MEDS: KETAMINE 500 MG/5 ML INJ 200 MG IV (21:41)
[2020-08-16] MEDS: HEPARIN DRIP 25,000 UNIT/500 ML IV.SOLN 20 UNIT IV (21:49)
[2020-08-16] MEDS: HEPARIN 5,000 UNIT/ML VIAL 5000 UNIT IV (21:49)
[2020-08-16] MEDS: propofoL 1,000 MG/100 ML VIAL 3.09 MG IV (22:00)
[2020-08-16] MEDS: MIDAZOLAM 5 MG/ML VIAL (22:00)
[2020-08-16 22:08] LABS: Fractionated Inspired Oxygen 100; HCO3 ABG 22 mmol/L (22-26); Oxygen Saturation ABG 100 % (95-100); PO2 ABG 469 mmHg (80-100); TCO2 ABG 24 mmol/L (21-31); pH ABG 7.15 (7.35-7.45)
[2020-08-16] MEDS: HYDROMORPHONE 1 MG INJ IV (22:57)
== END 2020-08-16 23:00 | disposition short-term general hospital (02) ==
PROVIDERS: Emergency Medicine; Emergency Provider Emergency Medicine
DX: J96.01 Acute respiratory failure with hypoxia (principal); R57.0 Cardiogenic shock; A41.9 Sepsis, unspecified organism; I25.10 Atherosclerotic heart disease of native coronary artery without angina pectoris; E03.9 Hypothyroidism, unspecified; Z20.822 Contact with and (suspected) exposure to COVID-19
CPT/HCPCS: 36415; 36573; 36600; 71045; 71275; 80053; 81001; 82550; 82553; 82805; 83605; 83880; 84145; 84484; 85007; 85025; 85379; 85610; 85730; 87040; 87635; 93005; 93010; 94002; 94640; 94799; 96361; 96365; 96366; 96367; 96368; 96375; 99285; 99291; 99292; C9803; J0696; J1170; J1644; J2250; J2704; J2930; J3475; Q9967

== ENCOUNTER → 2021-02-08 09:09 | Outpatient (CLI) | payer OTHER, MEDICAID, SELFPAY ==
[2020-08-16 19:21] VITALS: RESP 28
[2020-08-16 21:22] VITALS: PULSE 99; RESP 28
[2020-08-16 21:59] VITALS: O2SAT 100
[2021-02-08 10:47] LABS: NT-proBNP (BNP-Adult 18+) 131 pg/mL (<125)
[2021-02-08 11:10] LABS: Thyroid Stimulating Hormone 4.09 uIU/mL (0.47-4.68)
== END ==
PROVIDERS: PCP Family Medicine; Referring Provider Nurse Practitioner; Visit Provider Nurse Practitioner
DX: I50.22 Chronic systolic (congestive) heart failure (principal); I25.5 Ischemic cardiomyopathy; I25.2 Old myocardial infarction
CPT/HCPCS: 36415; 83880; 84443

== ENCOUNTER → 2021-05-07 14:42 | Outpatient (CLI) | payer OTHER, MEDICAID, SELFPAY ==
[2020-08-16 19:21] VITALS: RESP 28
[2020-08-16 21:22] VITALS: PULSE 99; RESP 28
[2020-08-16 21:59] VITALS: O2SAT 100
[2021-05-07 16:03] LABS: COVID19 -Nasal RAPID Negative (Negative)
== END ==
PROVIDERS: PCP Family Medicine; Visit Provider Nurse Practitioner Family
DX: Z20.822 Contact with and (suspected) exposure to COVID-19 (principal); Z01.812 Encounter for preprocedural laboratory examination
CPT/HCPCS: 87635; C9803

== ENCOUNTER → 2021-05-09 13:20 | Outpatient (CLI) | payer OTHER, MEDICAID, SELFPAY ==
[2020-08-16 19:21] VITALS: RESP 28
[2020-08-16 21:22] VITALS: PULSE 99; RESP 28
[2020-08-16 21:59] VITALS: O2SAT 100
--- NOTE | 2021-05-09 | DI.NM.S_ITS ---
PROCEDURE: NM BALJINDER PERF SPECT REST & STR Rest and exercise myocardial perfusion SPECT with gated imaging and ejection fraction RADIOPHARMACEUTICAL: 24.4 mCi Tc-99m sestamibi IV at rest and 25.8 mCi Tc-99m sestamibi IV at peak exercise. A [id number] was performed. INDICATIONS: Ischemic cardiomyopathy TECHNIQUE: Radiopharmaceutical was injected at peak stress test, and also at rest. SPECT images were obtained. SPECT myocardial perfusion images were displayed in short axis, horizontal long axis, and vertical long axis views. Gated images were reviewed using Micron[employer] software. COMPARISON: None. CARDIAC STRESS: A standard Ken treadmill exercise tolerance test was performed by the patient under the supervision of an attending staff. The patient exercised for 4 minutes and 21 seconds; 7.0 METS; functional aerobic impairment (MIGUEL) is +36%. Hemodynamic data: There is normal blood pressure and heart rate response to exercise stress. Patient achieved 93% of maximum predicted heart rate at peak exercise. Maximum blood pressure 120/70. Symptoms: Patient denied chest pain during exercise. EKG: No diagnostic EKG changes of ischemia; rare PVCs. FINDINGS: Raw data: There is good myocardial labeling by radiotracer. No significant motion artifacts. Cunw-ip-iltxa ratio is 0.38 (normal is less than 0.38 for sestamibi tracer, and less than 0.50 for thallium tracer). Left ventricle function: Gated images demonstrate normal left ventricle wall thickening. No segmental wall motion abnormality. No transient ischemic dilation; TID is 1.08 (normal less than 1.3). The left ventricle resting end-diastolic volume is 130 mL. Left ventricle stress ejection fraction is calculated at 68%; normal values are above 45%. Myocardial perfusion: There is a large size, moderate to severe intensity fixed inferior and inferolateral defect. Wall motion appears preserved on gated imaging however. IMPRESSION: 1. No definite exercise-induced ischemia by perfusion imaging. There is however a fixed inferior and inferolateral wall defect with preserved wall motion making this likely most consistent with attenuation artifact. 2. No ECG changes with exercise. 3. Limited exercise capacity. 4. Normal blood pressure response to exercise. Dictated by: Joselin Mcmahan D.O. on 05/11/2021 at 15:35 Approved by: Joselin Mcmahan M.D. on 05/11/2021 at 15:41
== END ==
PROVIDERS: PCP Family Medicine; Referring Provider Internal Medicine Cardiovascular Disease; Visit Provider Internal Medicine Cardiovascular Disease
DX: I25.5 Ischemic cardiomyopathy (principal); I34.0 Nonrheumatic mitral (valve) insufficiency; I21.4 Non-ST elevation (NSTEMI) myocardial infarction; I50.22 Chronic systolic (congestive) heart failure; I70.0 Atherosclerosis of aorta
CPT/HCPCS: 78452; 93017; A9502

== ENCOUNTER → 2021-05-10 16:08 | Outpatient (CLI) | payer OTHER, MEDICAID, SELFPAY ==
[2020-08-16 19:21] VITALS: RESP 28
[2020-08-16 21:22] VITALS: PULSE 99; RESP 28
[2020-08-16 21:59] VITALS: O2SAT 100
--- NOTE | 2021-05-10 | DI.ECHO.S_ITS ---
[place] [facility]---------+ [facility] +---------+ : : [address] : : : : [id number] : : : : Phone: [phone]+ Echocardiogram Report + + :Name: CHIQUITA SALINAS Study Date: 05/10/2021 Height: 67 in : :[facility] ReadingLocation: Weight: 213 lb : : Gender: Female BSA: 2.1 m2 : :: 1960 Age: 60 yrs BP: 102/75 mmHg: :Reason For Study: ISCHEMIC CARDIOMYOPATHY : :Ordering Physician: LY, : :JANETTE Performed By: Puja Ulloa : :Referring: JANETTE MODI : + + Interpretation Summary The left ventricle is normal in size and wall thickness. The ejection fraction is estimated to be 45-50%. Compared to the prior exam, the left ventricular function is improved. There is akinetic proximal to mid posterior wall and hypokinesis of the proximal inferior wall unchanged from the previous study. The right ventricle is normal in size and function. No significant valvular pathology seen. No obvious LV thrombus or LV mass seen. Patient has papillary muscle calcification as well as some chordae calcification which are old findings. False tendon seen in the left ventricular apex which is old. Mild atherosclerotic plaque(s) in the aortic arch. Procedure: A two-dimensional transthoracic echocardiogram with color flow and Doppler was performed. The study quality was technically adequate. Comparison is made with the echocardiogram of 08/21/2020. The patient was in sinus rhythm with heart rates between 85-90 bpm during the exam. Left Ventricle: The left ventricle is normal in size and wall thickness. A false chord is noted (normal variant). There is no thrombus. The ejection fraction is estimated to be 45-50%. Compared to the prior exam, the left ventricular function is improved. There is akinetic proximal to mid posterior wall and hypokinesis of the proximal inferior wall unchanged from the previous study. MV E/A: 0.77 Med Peak E' Leif: 5.9 cm/sec E/E' med: 18.4. Right Ventricle: The right ventricle is normal in size and function. Atria: The left atrium is mildly dilated. The left atrium has mildly decreased in size since the prior echo exam. Right atrial size is normal. There is no Doppler evidence for an interatrial shunt. Mitral Valve: There is mild mitral annular calcification. The mitral valve chordae are thickened and/or calcified. The mitral papillary muscle appears thickened and/or calcified. No significant mass or vegetation seen. There is trace mitral regurgitation. Aortic Valve: The aortic valve is not well visualized. The aortic valve opens well. There is no aortic valve stenosis. No aortic regurgitation is present. Tricuspid Valve: The tricuspid valve is not well visualized. There is trace tricuspid regurgitation. Pulmonary artery pressures cannot be estimated because of the lack of a measurable TR jet velocity but the IVC suggests a CVP of around 3 mmHg. Pulmonic Valve: The pulmonic valve is not well visualized. There is no pulmonic valvular regurgitation. Great Vessels: The aortic root is normal size. The dimensions of the ascending aorta are normal. Mild atherosclerotic plaque(s) in the aortic arch. The IVC is of normal diameter and collapses greater than 50% with a sniff. This suggests a low right atrial pressure of 3 mm Hg. Pericardium/ Pleura There is no pericardial effusion. There is no pleural effusion. MMode/2D Measurements & Calculations LVIDd: 4.4 cm LVOT diam: 2.0 cm LVIDs: 3.5 cm Ao root diam: 2.6 cm FS: 21.6 % asc Aorta Diam: 3.3 cm IVSd: 0.87 cm Ao Arch Diam (Prox Trans): 2.8 cm LVPWd: 0.83 cm LV [place]. diameter/BSA (cm/m^2): 2.1 LV sys. diameter/BSA (cm/m^2): 1.7 LA A2 area: 21.9 cm2 RA long axis: 4.6 cm LA A4 area: 22.6 cm2 RA area: 12.8 cm2 LA length (vol): 5.4 cm RA vol: 30.1 ml LA vol: 77.5 ml RA : 14.5 ml/m2 LA vol index: 37.3 ml/m2 IVC diam: 1.2 cm RVD1 (basal): 3.3 cm TAPSE: 2.3 cm Doppler Measurements & Calculations Ao V2 max: 151.6 cm/sec LVOT Max Leif: 117.7 cm/sec Ao V2 mean: 115.0 cm/sec LV V1 max P.5 mmHg Ao max P.2 mmHg LV V1 VTI: 23.3 cm Ao mean P.6 mmHg MARIANA(I,D): 2.3 cm2 Ao V2 VTI: 30.5 cm MARIANA(V,D): 2.3 cm2 sev ratio: 0.76 MARIANA indexed to BSA (cm^2/m^2): 1.1 MV E max leif: 107.9 cm/sec PA V2 max: 136.3 cm/sec MV A max leif: 140.6 cm/sec PA V2 mean: 101.3 cm/sec MV E/A: 0.77 PA mean P.4 mmHg Med Peak E' Leif: 5.9 cm/sec PA pr(Accel): 43.0 mmHg E/E' med: 18.4 Lat Peak E' Leif: 13.4 cm/sec E/E' lat: 8.1 E/e' average: 13.2 MV dec time: 0.18 sec MVA(VTI): 2.2 cm2 MV V2 mean: 89.1 cm/sec SV(LVOT): 70.1 ml MV mean P.8 mmHg MV V2 VTI: 32.5 cm Reading Physician:10:44 AM
== END ==
PROVIDERS: PCP Family Medicine; Referring Provider Internal Medicine Cardiovascular Disease; Visit Provider Internal Medicine Cardiovascular Disease
DX: I25.5 Ischemic cardiomyopathy (principal); I34.0 Nonrheumatic mitral (valve) insufficiency; I21.4 Non-ST elevation (NSTEMI) myocardial infarction; I70.0 Atherosclerosis of aorta
CPT/HCPCS: 93306

== ENCOUNTER → 2021-08-10 14:50 | Outpatient (CLI) | payer OTHER, MEDICAID, SELFPAY ==
[2020-08-16 19:21] VITALS: RESP 28
[2020-08-16 21:22] VITALS: PULSE 99; RESP 28
[2020-08-16 21:59] VITALS: O2SAT 100
--- NOTE | 2021-08-15 07:40 | PM.PFT.1 ---
Pulmonary Function Test Referral & Results Date Patient Seen: 08/10/21 Requesting provider: Chiquita Reyes Results: The spirometry demonstrates an FVC of 3.07 L which is 83% of predicted. The FEV1 was measured at 2.07 L which is 72% of predicted. The FEV1/FVC ratio was 67 which is 86% of predicted. Following the administration of bronchodilator there was no notable change. Lung volumes show an SVC of 3.20 L which is 94% of predicted. The diffusing capacity was measured at 23.73 which is 83% of predicted. The maximum voluntary ventilation was reduced Interpretation: This study demonstrates mild obstructive lung disease based on reduction FEV1 although FEV1/FVC ratio is relatively preserved. Shape a flow volume loop also supports the presence of some element of obstructive lung disease although there is no benefit after bronchodilator administration Lung volumes are normal There is a mild reduction diffusing capacity unless patient is anemic Clinical correlation suggested
== END ==
PROVIDERS: PCP Family Medicine; Referring Provider Specialist; Visit Provider Specialist
DX: R05.3 Chronic cough (principal); J44.9 Chronic obstructive pulmonary disease, unspecified
CPT/HCPCS: 94060; 94726; 94729

== ENCOUNTER → 2022-08-22 19:04 | Outpatient (CLI) | payer OTHER, MEDICAID, SELFPAY ==
[2020-08-16 19:21] VITALS: RESP 28
[2020-08-16 21:22] VITALS: PULSE 99; RESP 28
[2020-08-16 21:59] VITALS: O2SAT 100
--- NOTE | 2022-08-22 19:06 | DI.MRI.S_ITS ---
PROCEDURE: MR LUMBAR SPINE WO CON INDICATIONS: Radiculopathy, lumbar region TECHNIQUE: Noncontrast sagittal T1 spin echo and T2 fast echo, sagittal STIR, and T2 fast spin echo through the lumbar spine. In cases with scoliosis, additional coronal T2 fast spin echo may be performed. COMPARISON: [facility], CR, XR LUMBAR SPINE WITH OBLIQUES, 07/03/2022, 8:45. FINDINGS: Image quality: Excellent. Alignment and Curvature: There is normal bony alignment. Bone Marrow: Marrow is of normal overall signal. No acute vertebral body compression fractures. Spinal Cord: Conus medullaris terminates at the L1-L2 level. Visualized cord demonstrates normal signal and size. Paraspinous Soft Tissues: No paravertebral masses. T12-L1: Mild disc bulge. No canal stenosis or foraminal stenosis. L1-L2: Mild disc bulge. No canal stenosis or foraminal stenosis. L2-L3: Mild disc bulge. No canal stenosis or foraminal stenosis. L3-L4: Disc bulge. Facet hypertrophy. No canal stenosis. Mild left foraminal stenosis. L4-L5: Disc bulge. Facet hypertrophy. No canal stenosis. Mild left foraminal stenosis. L5-S1: Disc bulge. Facet hypertrophy. No canal stenosis. [id number]-[id number] bilateral foraminal stenosis. IMPRESSION: 1. Multilevel disc bulges and multilevel facet hypertrophy. 2. No canal stenosis. 3. Multilevel foraminal narrowing as described above. Dictated by: Darien Calixto M.D. on 08/23/2022 at 8:33 Approved by: Darien Calixto M.D. on 08/23/2022 at 8:38
== END ==
PROVIDERS: PCP Physician Assistant; Referring Provider Physician Assistant Surgical; Visit Provider Physician Assistant Surgical
DX: M51.16 Intervertebral disc disorders with radiculopathy, lumbar region (principal); M47.26 Other spondylosis with radiculopathy, lumbar region; M51.17 Intervertebral disc disorders with radiculopathy, lumbosacral region; M47.27 Other spondylosis with radiculopathy, lumbosacral region; S39.012A Strain of muscle, fascia and tendon of lower back, initial encounter; M48.061 Spinal stenosis, lumbar region without neurogenic claudication; M48.07 Spinal stenosis, lumbosacral region; G89.29 Other chronic pain
CPT/HCPCS: 72148

== ENCOUNTER → 2022-12-09 13:42 | Outpatient (CLI) | payer OTHER, MEDICAID, SELFPAY ==
[2020-08-16 19:21] VITALS: RESP 28
[2020-08-16 21:22] VITALS: PULSE 99; RESP 28
[2020-08-16 21:59] VITALS: O2SAT 100
--- NOTE | 2022-12-09 14:01 | DI.MRI.S_ITS ---
PROCEDURE: MR LUMBAR SPINE WO CON INDICATIONS: Radiculopathy, lumbar region TECHNIQUE: Noncontrast sagittal T1 spin echo and T2 fast echo, sagittal STIR, and T2 fast spin echo through the lumbar spine. In cases with scoliosis, additional coronal T2 fast spin echo may be performed. COMPARISON: [facility], MR, MR LUMBAR SPINE WO CON, 08/22/2022, 19:49. [facility], CR, XR LUMBAR SPINE WITH OBLIQUES, 07/03/2022, 8:45. FINDINGS: Image quality: Excellent. Alignment and Curvature: 5 lumbar type vertebral bodies are present by plain film. 2 mm of retrolisthesis of L2 on L3. Bone Marrow: Marrow is of normal overall signal. No acute vertebral body compression fractures. Mild reactive signal within the endplates of the lumbar and lower thoracic spine. Spinal Cord: Conus medullaris terminates at the lower L1 level. Visualized cord demonstrates normal signal and size. Paraspinous Soft Tissues: No paravertebral masses. T12-L1: Normal appearance. L1-L2: Mild diffuse disc bulge. Mild facet and ligamentum flavum hypertrophy. Mild canal stenosis. Mild bilateral foraminal stenosis. L2-L3: Mild disc desiccation and diffuse disc bulge. Mild facet and ligamentum flavum hypertrophy. Mild canal stenosis. Mild bilateral foraminal stenosis. No significant change L3-L4: Mild disc desiccation and diffuse disc bulge. Mild facet and ligamentum flavum hypertrophy. Mild epidural lipomatosis. Mild canal stenosis. Moderate right and moderate to severe left foraminal stenosis. Mild left L3 nerve root compression. No significant change. L4-L5: Mild disc desiccation and diffuse disc bulge. Mild bilateral facet hypertrophy. Mild canal stenosis. Moderate bilateral foraminal stenosis. No significant change. L5-S1: Mild disc desiccation and diffuse disc bulge. Mild bilateral facet hypertrophy. Mild canal stenosis. Moderate left and moderate to severe right foraminal stenosis. Mild right L5 nerve root compression. No significant change. IMPRESSION: 1. Multilevel degenerative disc and facet disease, as well as ligamentum flavum hypertrophy and epidural lipomatosis. 2. Mild multilevel canal stenoses. 3. Multilevel foraminal stenoses, worst at L3-L4 and L5-S1 where there is associated intraforaminal nerve root compression. Recommend correlation with clinical symptoms to ascertain relevance of these findings. Dictated by: Yamini Coffman M.D. on 12/09/2022 at 15:54 Transcribed by: CM on 12/09/2022 at 15:57 Approved by: Yamini Coffman M.D. on 12/09/2022 at 16:43
== END ==
PROVIDERS: PCP Physician Assistant; Referring Provider Orthopaedic Surgery Orthopaedic Surgery of the Spine; Visit Provider Orthopaedic Surgery Orthopaedic Surgery of the Spine
DX: M51.16 Intervertebral disc disorders with radiculopathy, lumbar region (principal); M47.26 Other spondylosis with radiculopathy, lumbar region; M48.061 Spinal stenosis, lumbar region without neurogenic claudication; M48.07 Spinal stenosis, lumbosacral region
CPT/HCPCS: 72148

== ENCOUNTER → 2023-01-27 10:28 | Outpatient (CLI) | payer OTHER, MEDICAID, SELFPAY ==
[2020-08-16 19:21] VITALS: RESP 28
[2020-08-16 21:22] VITALS: PULSE 99; RESP 28
[2020-08-16 21:59] VITALS: O2SAT 100
--- NOTE | 2023-01-27 10:44 | DI.RAD.S_ITS ---
PROCEDURE: XR HIP W PEL IF DONE GAYATRI INDICATIONS: Bilateral hip pain TECHNIQUE: AP pelvis with lateral view(s) of the right and left hip(s). COMPARISON: None. FINDINGS: Bones: No fractures or dislocations. Pelvic ring appears intact. No suspicious bony lesions. Mild degenerative joint disease in hips and sacroiliac joints bilaterally. Soft tissues: The visualized bowel gas pattern is normal. No suspicious soft tissue calcifications. IMPRESSION: Mild degenerative joint disease. Dictated by: Abel Carter M.D. on 01/27/2023 at 14:08 Approved by: Abel Carter M.D. on 01/27/2023 at 14:09
[2023-01-27 12:18] LABS: Add Manual Diff / Slide Review NO; Basophils Absolute Auto 100 /uL (0-100); Basophils Percent Auto 0.4 % (0-2); Eosinophils Absolute Auto 600 /uL (0-450); Eosinophils Percent Auto 4.9 % (2-4); Hematocrit 35.7 % (36-46); Hemoglobin 11.8 g/dL (12.0-16.0); Lymphocytes Absolute Auto 2900 /uL (1100-4500); Lymphocytes Percent Auto 22.9 % (25-40); Mean Corpuscular HGB Conc 33.2 % (30-36); Mean Corpuscular Hemoglobin 30.4 PG (26-34); Mean Corpuscular Volume 91.4 fL (80-100); Monocytes Absolute Auto 800 /uL (0-900); Monocytes Percent Auto 6.5 % (3-14); Neutrophils Absolute Auto 8200 /uL (1500-7000); Neutrophils Percent Auto 65.3 % (50-75); Platelet Count 228 X10^3/uL (150-400); Red Cell Distribution Width 14.4 % (11.6-14.8); White Blood Cell Count 12.6 X10^3/uL (4.5-11.0)
[2023-01-27 12:25] LABS: Alanine Aminotransferase 31 IU/L (<35); Albumin 4.4 g/dL (3.5-5.0); Albumin Globulin Ratio 1.7 (1.0-2.8); Alkaline Phosphatase 68 U/L (38-126); Aspartate Aminotransferase 30 IU/L (14-36); BUN Creatinine Ratio 18.6 (6-22); Bilirubin Total 0.4 mg/dL (0.2-1.3); Blood Urea Nitrogen 24 mg/dL (7-17); Calcium 9.2 mg/dL (8.4-10.2); Carbon Dioxide 20 mmol/L (22-32); Chloride 105 mmol/L (98-107); Estimated Glomerular Filt Rate 47 mL/min (>60); Globulin 2.6 g/dL (1.7-4.1); Glucose 110 mg/dL (80-110); HEMOLYSIS < 15 (0-50); Potassium 4.9 mmol/L (3.4-5.1); Sodium 136 mmol/L (137-145)
== END ==
PROVIDERS: PCP Physician Assistant; Referring Provider Anesthesiology; Visit Provider Physician Assistant
DX: E11.9 Type 2 diabetes mellitus without complications (principal); M25.551 Pain in right hip; M25.552 Pain in left hip; I25.10 Atherosclerotic heart disease of native coronary artery without angina pectoris; M16.0 Bilateral primary osteoarthritis of hip; M53.3 Sacrococcygeal disorders, not elsewhere classified; M47.816 Spondylosis without myelopathy or radiculopathy, lumbar region; M54.50 Low back pain, unspecified; M70.61 Trochanteric bursitis, right hip; M70.62 Trochanteric bursitis, left hip
CPT/HCPCS: 36415; 73522; 80053; 83036; 85025; 99214

== ENCOUNTER 2023-02-26 08:27 | Outpatient (CLI) | payer OTHER, MEDICAID, SELFPAY ==
[2020-08-16 19:21] VITALS: RESP 28
[2020-08-16 21:22] VITALS: PULSE 99; RESP 28
[2020-08-16 21:59] VITALS: O2SAT 100
[2023-02-26] VITALS (9 sets, daily range): BP systolic 96–124; BP diastolic 52–70; PULSE 78–97; RESP 11–22; TEMP 36; O2SAT 95–100
--- NOTE | 2023-02-26 08:28 | DI.RAD.S_ITS ---
PROCEDURE: PAIN SI JOINT INJECTION GAYATRI INDICATIONS: JOINT DYSFUNCTION COMPARISON: [facility], CR, XR HIP W PEL IF DONE GAYATRI 3TO4V, 01/27/2023, 11:00. FINDINGS: Fluoroscopic spot filming was performed to verify placement of spinal needles involving both sacroiliac joints. Appropriate location(s) of the needle tip(s) was confirmed by injection of iodinated contrast. IMPRESSION: Procedural Dictated by: Jonh Escamilla M.D. on 02/26/2023 at 17:27 Approved by: Jonh Escamilla M.D. on 02/26/2023 at 17:28
[2023-02-26] MEDS: IOPAMIDOL 15 ML VIAL 3 ML INJ (09:36)
[2023-02-26] MEDS: DEXAMETHASONE 10 MG/ML VIAL 20 MG INJ (09:36)
[2023-02-26] MEDS: MIDAZOLAM 2 MG/2 ML VIAL IV (09:38)
--- NOTE | 2023-02-26 11:58 | P.PCN_ITS ---
Date/Time/Diagnoses Date of procedure: 02/26/23 Time of procedure: 09:30 Procedure Notes Physician: Graeme Rivera Total Fluoroscopy time (seconds): 18 Total sedation minutes: 9 Procedure in detail & Post-procedure care: Bilateral Sacroiliac Joint Injection Indications: Riana is presenting for treatment of SI joint dysfunction with low back/buttock pain. Preoperative diagnosis: Bilateral SI joint dysfunction Postoperative diagnosis: Same Focused Examination: Ax3 Mood and affect are normal Vital Signs: VSS ASA: 2 Consent: Following review of allergies and potential side effects/complications, including, but not necessarily limited to, infection, allergic reaction, local tissue breakdown, stroke, temporary or permanent nerve injury, paralysis, and possible , the patient indicated that they understood and agreed to proceed.? An informed consent document was signed by the patient, witnessed by a nurse and placed in the patient's chart.? Additionally, other treatment options including medications and physical therapy were reviewed with the patient. All questions were answered. Site was then marked. Anesthesia: After review of previous anesthetic history and IV conscious sedation, the patient was deemed safe to proceed with today's procedure with IV conscious sedation. IV sedation was accomplished with midazolam 2 mg administered by the RN after order by Dr. Rivera. Sedation was titrated to patient comfort during the course of the procedure. Patient remained responsive to all verbal commands. Position: Prone Monitoring: NIBP, Pulse oximetry, 3 lead EKG Needle used: 22 ga, 3.5 inch spinal Contrast: 2 mL Isovue M-300 Injectate: Dexamethasone 7.5 mg with 1% lidocaine 2 mL per site Technique: The skin was prepped with chloraprep and then draped in a sterile fashion. Time out was performed as per protocol. Oxygen applied via NC. Skin and subcutaneous structures of the needle entry site was then infiltrated with 5 mL of lidocaine 1%. Under AP and lateral fluoroscopic control, the spinal needle was guided into the right sacroiliac joint. 1 mL contrast was injected and was consistent with intra-articular placement. There was no evidence for intravascular uptake. After negative aspiration, the above-mentioned injectate was then slowly administered and the needle withdrawn. The patient expressed no unusual discomfort or paresthesias during the injection. Skin and subcutaneous structures of the needle entry site was then infiltrated with 5 mL of lidocaine 1%. Under AP and lateral fluoroscopic control, the spinal needle was guided into the left sacroiliac joint. 1 mL contrast was injected and was consistent with intra-articular placement. There was no evidence for intravascular uptake. After negative aspiration, the above-mentioned injectate was then slowly administered and the needle withdrawn. The patient expressed no unusual discomfort or paresthesias during the injection.Band-Aids applied to injection sites. EBL: less than 1 ml Complications: None Post Procedure: Patient was taken to the recovery and monitored. The patient was provided a Pain Log to continue to record the patient's response to the target- specific procedure prior to the patient's follow-up visit with the referring physician. Patient was stable upon discharge. Detailed post procedure instructions were provided. Patient was asked to call in the event of worsening pain, fever, weakness, numbness or bladder or bowel incontinence.
== END 2023-02-26 10:08 | disposition home or self-care (01) ==
PROVIDERS: PCP Physician Assistant; Referring Provider Anesthesiology; Visit Provider Anesthesiology
DX: M53.3 Sacrococcygeal disorders, not elsewhere classified (principal)
CPT/HCPCS: 27096; J1100; J2250

== ENCOUNTER → 2023-05-09 10:31 | Outpatient (CLI) | payer OTHER, MEDICAID, SELFPAY ==
[2020-08-16 19:21] VITALS: RESP 28
[2020-08-16 21:22] VITALS: PULSE 99; RESP 28
[2020-08-16 21:59] VITALS: O2SAT 100
[2023-05-09 12:32] LABS: Alanine Aminotransferase 28 IU/L (<35); Albumin 4.4 g/dL (3.5-5.0); Albumin Globulin Ratio 1.6 (1.0-2.8); Alkaline Phosphatase 59 U/L (38-126); Aspartate Aminotransferase 46 IU/L (14-36); BUN Creatinine Ratio 15.4 (6-22); Bilirubin Total 0.4 mg/dL (0.2-1.3); Blood Urea Nitrogen 20 mg/dL (7-17); Calcium 8.7 mg/dL (8.4-10.2); Carbon Dioxide 28 mmol/L (22-32); Chloride 100 mmol/L (98-107); Cholesterol 122 mg/dL (140-199); Estimated Glomerular Filt Rate 47 mL/min (>60); Globulin 2.7 g/dL (1.7-4.1); Glucose 137 mg/dL (80-110); HDL Cholesterol 54 mg/dL (40-60); HEMOLYSIS < 15 (0-50); LDL Cholesterol Calculated 48 mg/dL (<100); Potassium 3.4 mmol/L (3.4-5.1); Sodium 138 mmol/L (137-145); Total Protein 7.1 g/dL (6.3-8.2); Triglycerides 101 mg/dL (35-150)
== END ==
PROVIDERS: PCP Physician Assistant; Referring Provider Nurse Practitioner; Visit Provider Nurse Practitioner
DX: I25.2 Old myocardial infarction (principal); E78.5 Hyperlipidemia, unspecified
CPT/HCPCS: 36415; 80053; 80061